=== PATIENT | male | born 1995 | race Caucasian/White ===

== ENCOUNTER 2022-02-23 15:45 | Emergency (ER) | payer OTHER ==
[~2022-02-23] VITALS: Ht 170.2 cm; Wt 98.0 kg
[2022-02-23] MEDS ORDERED: IBUPROFEN 600 MG TABLET PO ONE (16:30)
[2022-02-23] MEDS ORDERED: ACETAMINOPHEN/CODEINE 300-30 MG TABLET PO ONE (16:30)
[2022-02-23] MEDS ORDERED: SODIUM CHLORIDE 0.9% 250 ML IRRIG SOLUTION BOTTLE IRRIG ONE (18:30)
[2022-02-23] MEDS ORDERED: LIDOCAINE 1% 10 ML VIAL ID ONE (18:30)
[2022-02-23] MEDS ORDERED: CEPH-558 PO (20:38)
[2022-02-23 20:45] VITALS: BP 135/75
== END 2022-02-23 20:55 | disposition home or self-care (01) ==
LOC: EMS 15:52
DX: S61.412A Laceration without foreign body of left hand, initial encounter (principal); W01.110A Fall on same level from slipping, tripping and stumbling with subsequent striking against sharp glass, initial encounter; Y93.89 Activity, other specified; Y92.89 Other specified places as the place of occurrence of the external cause; Y99.8 Other external cause status
CPT/HCPCS: 99283; 73130; 12002; J3490